=== PATIENT | male | born 1930 | race Caucasian/White ===

== ENCOUNTER 2020-02-16 10:24 | Inpatient (IN) | payer OTHER ==
[~2020-02-16] VITALS: Ht 167.6 cm; Wt 90.7 kg
[2020-02-16 10:24] VITALS: BP 149/63
[2020-02-16 11:05] LABS: POLYS 69.1 % (36.0-66.0)
[2020-02-16 11:11] LABS: ABSOLUTE NEUTROPHILS 3.4 thou/uL (1.4-8.2); BASOPHILS 0.9 % (0.0-2.0); EOSINOPHILS 4.7 % (0.0-3.0); HEMATOCRIT 37.1 % (42.0-52.0); HEMOGLOBIN 12.6 gm/dL (14.0-18.0); LYMPHOCYTES 14.2 % (24.0-44.0); MCH 32.5 pg (26.0-34.0); MCHC 33.9 g/dL (28.0-37.0); MCV 95.7 fL (80.0-100.0); MONOCYTES 11.1 % (1.0-8.0); PLATELET COUNT 145 thou/uL (150-400); RBC 3.88 mil/uL (4.50-6.00); RDW 14.4 % (10.5-14.5)
[2020-02-16 11:16] LABS: URINE BILIRUBIN NEGATIVE (Negative); URINE BLOOD NEGATIVE (Negative); URINE CLARITY CLEAR; URINE COLOR YELLOW; URINE GLUCOSE-RANDOM* 3+ (Negative); URINE KETONES NEGATIVE (Negative); URINE LEUKOCYTES-REFLEX NEGATIVE (Negative); URINE NITRITE-REFLEX NEGATIVE (Negative); URINE PROTEIN (DIPSTICK) NEGATIVE (Negative); URINE SPECIFIC GRAVITY 1.025 (1.005-1.035); URINE UROBILINOGEN 0.2 E.U./dl (0.2-1.0)
[2020-02-16 11:22] LABS: ANION GAP 7 mmol/L (7-16); BUN 37 mg/dL (7-18); CALCIUM 8.4 mg/dL (8.5-10.1); CHLORIDE 101 mmol/L (98-107); CO2 29 mmol/L (21-32); CREATININE 2.2 mg/dL (0.7-1.3); GLUCOSE 178 mg/dL (74-106); POTASSIUM 4.4 mmol/L (3.5-5.1); SODIUM 137 mmol/L (136-145)
[2020-02-16 11:25] LABS: PROTIME 10.2 Seconds (9.3-11.4)
[2020-02-16 11:26] LABS: ALBUMIN 3.2 g/dL (3.4-5.0); DIRECT BILIRUBIN 0.2 mg/dL (<0.1-0.2); SGOT 18 U/L (15-37); SGPT 29 U/L (30-65); TOTAL BILIRUBIN 0.9 mg/dL (0.2-1.0); TOTAL PROTEIN 6.4 g/dL (6.4-8.2); TROPONIN-I <0.06 ng/mL (<0.06)
[2020-02-16] MEDS ORDERED: GLYXAMBI 25 MG1 EACH PO (11:37)
[2020-02-16] MEDS ORDERED: METOPROLOL SUCC50 MG PO (11:37)
[2020-02-16] MEDS ORDERED: CLONIDINE HCL0.3 M3 PO (11:37)
[2020-02-16] MEDS ORDERED: LIPITOR 20 MG T20 M1 PO (11:38)
[2020-02-16] MEDS ORDERED: LOSARTAN POTAS100 MG PO (11:38)
[2020-02-16] MEDS ORDERED: TRESIBA100 UNIT/1 SUBQ (11:38)
--- NOTE | 2020-02-16 13:05 | EKG ---
[facility] [place] [address] ELECTROCARDIOGRAM REPORT Name: GUY LINDSEY Room #: 170-3 ADM IN M.R.#: [id number] Admission: 02/16/20 Attend Phys: Ed Alvarado MD Discharge: Date of : [birth year] Report #: [id number] THIS REPORT FOR: cc: Michael Koch MD, Steven A. MD Santiago, Patrick MD [facility] ~ THIS REPORT FOR: //name// [facility] ED Test Date: 2020-02-16 Test Time: 10:30:11 Pat Name: GUY LINDSEY Department: Room: 170 Gender: M Department Store Manager: LOU : 1930 Requested By: Claudia Hernandez Order Number: [id number] MD: Germán Tee Measurements Intervals [place] Rate: 58 P: 62 PA: 190 QRS: -26 QRSD: 89 T: -3 QT: 446 QTc: 439 Interpretive Statements Sinus rhythm PAC's Borderline left axis deviation Borderline T abnormalities, inferior leads No previous ECG available for comparison Electronically Signed On 02-16-2020 13:05:41 CDT by Germán Tee [email or web address] <ELECTRONICALLY SIGNED> By: Germán Tee MD, [facility] 02/16/20 1305 1030 1030 Germán Tee MD, [facility] /EPI
[2020-02-16 13:19] VITALS: BP 141/69
[2020-02-16 14:20] VITALS: BP 141/69
[2020-02-16 15:15] VITALS: BP 106/61
[2020-02-16 15:20] VITALS: BP 110/63
--- NOTE | 2020-02-16 15:26 | NUR ---
RETURNED FROM LUNCH AROUND 1445 AND ANOTHER RN HAD TAKEN REPORT AND GOT PT SETTLED IN. HE IS A&OX4, STATES HIS STROKE LIKE SX ONLY LASTED 30-45 MIN. AMB STEADY HERE. HOOKED UP TO IVF SO HAS INSTRUCTIONS TO USE URINAL OR CALL FOR SBA. LIVES AT HOME ALONE. WRAPPED HIS RAC IV TO ENSURE PATENCY AND IVF NONINTERRUPTION OF FLOW. ROOM AND CALL LIGHT DEMO, TURNED UP HEAT, SEE SEPARATE INTERVENTIONS FOR ASSESSMENTS. CARDIAC MONITORED.
[2020-02-16] MEDS ORDERED: SUPER THERAVIT1 EACH PO (15:30)
[2020-02-16] MEDS ORDERED: ADVIL200 M3 PO (15:30)
[2020-02-16 20:14] VITALS: BP 128/54
[2020-02-17 00:07] VITALS: BP 140/50
[2020-02-17 04:05] VITALS: BP 122/52
--- NOTE | 2020-02-17 05:03 | NUR ---
CARE ASSUMED 1900. PT ALERT AND ORIENTED. CVA SX RESOLVED. NIH 0. DENIES NUMBNESS, WEAKNESS OR TINGLING. VITALS STABLE. PLAN TO HAVE MRI COMPLETED THIS AM. DENIES ANY CONCERNS. INDEPENDENT WITH STEADY GAIT. WILL CONTINUE TO MONITOR AND FOLLOW POC
[2020-02-17 05:50] LABS: HEMATOCRIT 35.4 % (42.0-52.0); HEMOGLOBIN 11.9 gm/dL (14.0-18.0); MCH 32.1 pg (26.0-34.0); MCHC 33.6 g/dL (28.0-37.0); MCV 95.7 fL (80.0-100.0); RBC 3.7 mil/uL (4.50-6.00); RDW 14.1 % (10.5-14.5); WBC 4.6 thou/uL (4.0-11.0)
[2020-02-17 06:09] LABS: ALBUMIN 2.8 g/dL (3.4-5.0); CALCIUM 8.3 mg/dL (8.5-10.1); CREATININE 1.6 mg/dL (0.7-1.3); PHOSPHORUS 3.9 mg/dL (2.5-4.9); POTASSIUM 4.6 mmol/L (3.5-5.1)
[2020-02-17 08:30] VITALS: BP 158/76
--- NOTE | 2020-02-17 08:40 | NUR ---
ASSUMED CARE OF PT AT SHIFT CHANGE, DIDN'T GET MUCH SLEEP PER PT, UP USING RESTROOM FREQUENTLY, PT STATES ITS NOT THE NORM, USUALLY EVERY 3-4 HOURS, HAS IVF RUNNING, UNHOOKED FOR MRI THIS A.M. AND FOR SOME AMBULATION. A&0X4, UP AD WILFREDO STEADY, SEE SEPARATE INTERVENTIONS FOR ASSESSMENTS. ENCOURAGED PT TO USE CALL LIGHT FOR ANY NEEDS
[2020-02-17 12:00] VITALS: BP 97/44
--- NOTE | 2020-02-17 13:11 | NUR ---
PT UP AD WILFREDO. WORKED WITH PHYSICAL THERAPY TODAY AND DEMONSTRATED NO DIFFICULTIES WITH FUNCTIONAL MOBILITY OR TRANSFERS. PHYSICAL THERAPY STATES PT WAS WEARING SOCKS AND SHOES INDICATING HE'S ABLE TO DRESS INDEPENDENTLY. PLOF INPEPENDENT IN ADLS AND IADLS. OT SIGNING OFF. PLEAST LET DEPT KNOW IF PT NEEDS CHANGE.
[2020-02-17 16:30] VITALS: BP 134/58
--- NOTE | 2020-02-17 17:30 | NUR ---
Met with patient and dtr at bedside. Patient resides at home in independent home with all needs on one level. He uses no DME at home and cont to drive. He has entry level assistant manager and someone to mow lawn. PCP Dr Michael Londono. Patient anticipated no dc needs.
[2020-02-17 20:45] VITALS: BP 164/76
[2020-02-18] VITALS: BP 148/74
--- NOTE | 2020-02-18 03:03 | NUR ---
assumed pt care at the change of shift, pt is awake, alert and orientedx4, sr/sb on the monitor, assessments as charted, bp elevated at the beginning of shift, bp medicine given as scheduled, recheck bp better, denies pain or sob, iv fluids infusing as ordered, no acute distress noted, will continue to monitor
[2020-02-18 04:37] VITALS: BP 147/73
[2020-02-18 05:47] LABS: HEMATOCRIT 36.2 % (42.0-52.0); HEMOGLOBIN 12.3 gm/dL (14.0-18.0); MCH 32.1 pg (26.0-34.0); MCV 94.5 fL (80.0-100.0); RBC 3.83 mil/uL (4.50-6.00); RDW 14.1 % (10.5-14.5)
[2020-02-18 05:55] LABS: CALCIUM 8.5 mg/dL (8.5-10.1); CREATININE 1.5 mg/dL (0.7-1.3); POTASSIUM 4.2 mmol/L (3.5-5.1)
[2020-02-18 08:04] VITALS: BP 155/67
[2020-02-18] MEDS ORDERED: ASPIRIN325 PO (09:46)
--- NOTE | 2020-02-18 10:07 | NUR ---
RECEIVED PT'S CARE AROUND 0710; PT. ON BED; ALERT; DURING AM ASSESSMENT AOX4; NO C/O PAIN; AM MEDICATIONS GIVEN; EDUCATED ABOUT FALL PREVENTIONS; ST. UNDERSTANDING; ASKED WHEN MIGHT BE D/C; EDUCATED ABOUT D/C PROCESS; ST. UNDERSTANDING; D/C ORDERS ON PLACED; PT. NOTIFIED; WORKING ON D/C PAPERS; ASSESSMENT CHARGED; FOLLOWING POC; SB ON THE MONITOR; WILL D/C;
[2020-02-18 10:15] VITALS: BP 155/67
[2020-02-18] MEDS ORDERED: PLAVIX 75 MG TA75 MG PO (13:38)
--- NOTE | 2020-02-23 10:38 | HC ---
[facility] [place] [address] CONSULTATION Name: GUY LINDSEY Room #: 215-P [facility] IN M.R.#: [id number] Admission: 02/16/20 Attend Phys: Ed Alvarado MD Discharge: 02/18/20 Date of : [birth year] Report #: [id number] THIS REPORT FOR: cc: Michael Koch MD, Steven A. MD Khosla, Parveen K. MD ~ CC: Ed Koch DATE OF SERVICE: 02/17/2020 HISTORY OF PRESENT ILLNESS: This is an 89-year-old male patient who was evaluated by me for stroke. I saw the patient last night and saw again this evening and this is a combined note. The patient was admitted with visual blurring and lack of coordination. All the symptoms have resolved since then. He had some facial weakness. He had an MRI, which demonstrated multiple areas of strokes, mostly in the cerebellum area. His vasculature looks clean. He had an MRA and a carotid Doppler at that time and that does not appear to be showing any definite abnormality. His GFR is low. He was not taking any antiplatelet therapy. It looks like he is on statin. REVIEW OF SYSTEMS: Indicate he never had any history of stroke. He does have a history of renal failure, has a history of diabetes and hyperlipidemia. He had appendectomy in the past. That was his relevant 14-point review of system. PAST MEDICAL HISTORY: Negative for stroke. FAMILY HISTORY: Negative for any early age stroke. SOCIAL HISTORY: He does not smoke. PHYSICAL EXAMINATION: GENERAL: He is alert. He is responsive. His speech, concentration, fund of knowledge and memory is at his baseline. His cranial nerve examination 2-12 looks mostly unremarkable. He is able to ambulate. His neuromuscular examination is symmetrical. He does not have any [id number] abnormality. He feels his balance is back to its baseline. Blood pressure is 134/58, respirations 16, pulse is 50, and temperature is 97.4. I do not think he has any documented atrial fibrillation for the time being. LABORATORY DATA: His MRI report and films were reviewed. It showed a relatively small strokes in both cerebellum. None of them is a hemorrhagic his vasculature is clean. 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 There is [address] [address] CONSULTATION Name: GUY LINDSEY Room #: 215-P [facility] IN M.R.#: [id number] Admission: 02/16/20 Attend Phys: Ed Alvarado MD Discharge: 02/18/20 Date of : [birth year] Report #: [id number] no obvious cause for it. I will start him on dual antiplatelet therapy. I will also ask Cardiology to evaluate him for any evidence for embolization from the heart. The patient needs an echocardiogram done. He also needs prolonged monitoring to look for atrial fibrillation. We will defer to Cardiology what they want to do and how they want to arrange it. A total of about 50 minutes of time was spent taking care of this patient yesterday and today and majority of that time was spent counseling and coordinating care. <ELECTRONICALLY SIGNED> By: Ralph Cartwright MD 02/23/20 1038 1841 0026 Ralph Cartwright MD /nt
== END 2020-02-18 11:23 | disposition home or self-care (01) | DRG 64 ==
LOC: ER 10:24 → 2N 12:58 → EROBS 12:58 → 2N 14:31
PROVIDERS: Emergency Medicine; ADMIT Hospitalist; ATTEND Hospitalist
DX: I63.89 Other cerebral infarction (principal); N17.0 Acute kidney failure with tubular necrosis; E78.5 Hyperlipidemia, unspecified; E86.0 Dehydration; I12.9 Hypertensive chronic kidney disease with stage 1 through stage 4 chronic kidney disease, or unspecified chronic kidney disease; N18.9 Chronic kidney disease, unspecified; E11.22 Type 2 diabetes mellitus with diabetic chronic kidney disease; Z90.49 Acquired absence of other specified parts of digestive tract; Z79.4 Long term (current) use of insulin; Z79.899 Other long term (current) drug therapy; Z85.46 Personal history of malignant neoplasm of prostate; Z92.21 Personal history of antineoplastic chemotherapy
CPT/HCPCS: 10081